=== PATIENT | male | born 1955 | race Asian ===

== ENCOUNTER 2018-03-19 09:39 | Day surgery (SDC) | payer BC ==
[~2018-03-19 09:39] MED LIST: EPHEDrine SULFATE 50 MG/5 ML SYG
[2018-03-19] MEDS ORDERED: CEFAZOLIN 2 GM/50 ML (PMX) 50 ML IVPB (11:00)
[2018-03-19] MEDS ORDERED: SOD CHLORIDE 0.9% 1,000 ML IV (11:00)
[2018-03-19] MEDS ORDERED: CEFAZOLIN 1 GM INJ (12:49)
[2018-03-19] MEDS ORDERED: ROCURONIUM 50 MG INJ (12:49)
[2018-03-19] MEDS ORDERED: PROPOFOL 20 ML (12:49)
[2018-03-19] MEDS ORDERED: ROPIVACAINE 0.5 % 30 ML VIAL (12:50)
[2018-03-19] MEDS ORDERED: FENTAnyl 50 MCG/ML VIAL (12:50)
[2018-03-19] MEDS ORDERED: POLYMYXIN/BACITRACIN 1L IRRIG (12:50)
[2018-03-19] MEDS ORDERED: MIDAZOLAM 1 MG/ML 2 ML INJ (12:50)
[2018-03-19] MEDS ORDERED: PHENYLephrine (100 MCG/ML) 5ML SYG (13:13)
[2018-03-19] MEDS ORDERED: ONDANSETRON 4 MG INJ (13:41)
[2018-03-19] MEDS ORDERED: DEXAMETHASONE 4 MG/ML 1 ML INJ (13:41)
[2018-03-19] MEDS ORDERED: SUGAMMADEX SODIUM 200 MG/2 ML VIAL IV (13:41)
[2018-03-19] MEDS ORDERED: METOCLOPRAMIDE 10 MG INJ (13:41)
[2018-03-19] MEDS: BUPIVACAINE 0.25% (MPF) 30 ML INJ (13:44)
[2018-03-19] MEDS: POLYMYXIN/BACITRACIN 1L IRRIG IRR (13:44)
[2018-03-19] MEDS ORDERED: hydrALAzine 20 MG INJ IV (14:00)
[2018-03-19] MEDS ORDERED: ONDANSETRON 4 MG INJ IV (14:00)
[2018-03-19] MEDS ORDERED: METOCLOPRAMIDE 10 MG INJ IV (14:00)
[2018-03-19] MEDS ORDERED: OXYCODONE/ACETAMINOPHEN (5/325) TAB PO ×2 (14:00)
[2018-03-19] MEDS ORDERED: FENTAnyl 50 MCG/ML VIAL IV ×3 (14:00)
[2018-03-19] MEDS ORDERED: DIPHENHYDRAMINE 50 MG INJ IV (14:00)
[2018-03-19] MEDS ORDERED: MEPERIDINE 25 MG INJ IV (14:00)
[2018-03-19] MEDS ORDERED: LABETALOL HCL 20MG INJ IV (14:00)
[2018-03-19] MEDS ORDERED: EPHEDrine SULFATE 50 MG/5 ML SYG IV (14:00)
[2018-03-19] MEDS ORDERED: HYDROmorphONE 1 MG/5 ML IV SYRINGE IV ×3 (14:00)
[2018-03-19] MEDS: HYDROCODONE/APAP (5/325) TAB PO (16:05)
== END 2018-03-19 16:35 | disposition home or self-care (01) ==
LOC: SDS 09:39
DX: K40.30 Unilateral inguinal hernia, with obstruction, without gangrene, not specified as recurrent (principal)
CPT/HCPCS: 49507; 82962